=== PATIENT | female | born 1970 | race Caucasian/White ===

== ENCOUNTER 2016-09-22 04:40 | Emergency (ER) | payer SELFPAY ==
[~2016-09-22] VITALS: Ht 154.9 cm; Wt 61.0 kg
[~2016-09-22 04:40] MED LIST: AMBIEN5 MG PO; CIPROFLOXACN500 MG PO; GABAPENTIN300 MG PO; GABAPENTIN600 MG PO; THORAZINE100 M1 PO; TRAZODONE50 MG PO; VISTARIL 50MG C50 M1 PO
[2016-09-22] MEDS ORDERED: ALPRAZOLAM0.25 MG PO (04:59)
[2016-09-22 05:41] LABS: HEMATOCRIT 35.3 % (37.0-47.0); HEMOGLOBIN 11.3 g/dl (12.0-16.0); IMMATURE GRANULOCYTES 0.2 % (0.0-1.0); MEAN CELL VOLUME 83.3 fL CALC (80.0-100.0); MEAN CORPUSCULAR HGB 26.7 pG CALC (26.0-32.0); NEUT# 5.82 thou/uL (2.00-7.15); RED BLOOD COUNT 4.24 mill/uL (4.20-5.60); RED CELL DISTRI WIDTH 14.5 % (11.5-15.5)
[2016-09-22 05:48] LABS: URINE BILIRUBIN - DIPSTICK NEGATIVE (NEGATIVE); URINE BLOOD DIPSTICK NEGATIVE (NEGATIVE); URINE CLARITY CLEAR; URINE COLOR YELLOW; URINE GLUCOSE - DIPSTICK NEGATIVE (NEGATIVE); URINE KETONE NEGATIVE (NEGATIVE); URINE LEUK ESTERASE TRACE (NEGATIVE); URINE NITRITE - DIPSTICK NEGATIVE (Negative); URINE PROTEIN - DIPSTICK NEGATIVE (NEG-TRACE); URINE UROBILINOGEN - DIPSTICK 0.2 E.U./dL (0.2)
[2016-09-22 05:51] LABS: BARBITURATES NEGATIVE (NEGATIVE); COCAINE POSITIVE (NEGATIVE); METHADONE NEGATIVE (NEGATIVE); OXCYCODONE NEGATIVE (NEGATIVE); TETRAHYDROCANNABIONOL NEGATIVE (NEGATIVE); TRICYLIC ANTIDEPRESSANTS NEGATIVE (NEGATIVE)
[2016-09-22 06:08] LABS: ALBUMIN 4.6 g/dL (3.2-5.0); ALKALINE PHOSPHATASE 59 u/l (38-126); ANION GAP 16 (6-22 (CALC)); BILIRUBIN, TOTAL 0.6 mg/dL (0.0-1.4); BUN 10 mg/dL (7-17); BUN/CREATININE RATIO 14 (12-20 (CALC)); CALCIUM 9.9 mg/dL (8.4-10.2); CARBON DIOXIDE 25 mmol/l (22-30); CHLORIDE 101 mmol/l (95-108); CREATININE 0.7 mg/dL (0.5-1.0); GFR > 60 ML/MIN (>=60 (CALC)); GFR FOR AFR.AMER. > 60 ML/MIN (>=60 (CALC)); GLUCOSE 96 mg/dL (65-105); POTASSIUM 3.5 mmol/l (3.5-5.1); SGOT/AST 20 u/l (14-36); SGPT/ALT 38 u/l (9-52); SODIUM 139 mmol/l (137-146); TOTAL PROTEIN 7.6 g/dL (6.3-8.2)
[2016-09-22 06:13] LABS: ETHYL ALCOHOL 0 mg/dl (0-30)
[2016-09-22 07:44] VITALS: BP 144/94
== END 2016-09-22 07:44 | disposition short-term general hospital (02) | DRG 885 ==
LOC: ED 04:40
DX: F31.9 Bipolar disorder, unspecified (principal); R45.851 Suicidal ideations

== ENCOUNTER 2021-01-01 18:42 | Emergency (ER) | payer SELFPAY ==
[~2021-01-01] VITALS: Ht 154.9 cm; Wt 58.0 kg
[~2021-01-01 18:42] MED LIST changes: +ALPRAZOLAM0.25 MG PO
[2021-01-01] MEDS ORDERED: TRAZODONE50 MG PO (18:58)
[2021-01-01] MEDS ORDERED: hydroxyzine (18:59)
[2021-01-01 19:32] LABS: HEMATOCRIT 30.9 % (37.0-47.0); HEMOGLOBIN 9.3 g/dl (12.0-16.0); IMMATURE GRANULOCYTES 0.2 % (0.0-5.0); MEAN CELL VOLUME 80.5 fL CALC (80.0-100.0); MEAN CORPUSCULAR HGB 24.2 pG CALC (26.0-32.0); MEAN CORPUSCULAR HGB CONC 30.1 g/dL CAL (32.0-36.0); NEUT# 6.98 thou/uL (2.00-7.15); RED BLOOD COUNT 3.84 mill/uL (4.20-5.60); RED CELL DISTRI WIDTH 16.8 % (11.5-15.5)
[2021-01-01 19:38] LABS: ALKALINE PHOSPHATASE 44 u/l (38-126); ANION GAP 8 (6-22 (CALC)); BUN 18 mg/dL (7-17); BUN/CREATININE RATIO 26 (12-20 (CALC)); CARBON DIOXIDE 26 mmol/l (22-30); CHLORIDE 104 mmol/l (95-108); CPK 77 u/l (30-165); CREATININE 0.7 mg/dL (0.5-1.0); GFR > 60 ML/MIN (>=60 (CALC)); GFR FOR AFR.AMER. > 60 ML/MIN (>=60 (CALC)); MAGNESIUM 1.8 mg/dL (1.6-2.3); POTASSIUM 3.6 mmol/l (3.5-5.1); SGOT/AST 19 u/l (14-36); SODIUM 135 mmol/l (137-146); TOTAL PROTEIN 6.4 g/dL (6.3-8.2)
[2021-01-01 19:47] LABS: URINE BILIRUBIN - DIPSTICK NEGATIVE (NEGATIVE); URINE BLOOD DIPSTICK TRACE-INTACT (NEGATIVE); URINE COLOR YELLOW; URINE GLUCOSE - DIPSTICK NEGATIVE (NEGATIVE); URINE KETONE NEGATIVE (NEGATIVE); URINE LEUK ESTERASE NEGATIVE (NEGATIVE); URINE PROTEIN - DIPSTICK NEGATIVE (NEG-TRACE); URINE SPECIFIC GRAVITY >=1.030; URINE UROBILINOGEN - DIPSTICK 0.2 E.U./dL (0.2)
[2021-01-01 19:48] LABS: URINE NITRITE - DIPSTICK NEGATIVE (Negative)
[2021-01-01 19:51] LABS: ALBUMIN 3.4 g/dL (3.2-5.0); BILIRUBIN, TOTAL 0.2 mg/dL (0.0-1.4)
[2021-01-01 20:08] LABS: TSH, 3RD GENERATION 2.57 uIU/mL (0.47 - 4.68)
[2021-01-01] MEDS ORDERED: AMLODIPINE BESYL5 MG PO (20:27)
[2021-01-01 20:30] VITALS: BP 144/65
[2021-01-02] MEDS ORDERED: AMLODIPINE BESYL5 MG PO (14:40)
== END 2021-01-01 20:40 | disposition home or self-care (01) | DRG 880 ==
LOC: ED 18:42
PROVIDERS: Family Medicine
DX: F41.9 Anxiety disorder, unspecified (principal); I10 Essential (primary) hypertension

== ENCOUNTER 2022-09-16 15:45 | Emergency (ER) | payer SELFPAY ==
[~2022-09-16] VITALS: Ht 154.9 cm; Wt 62.0 kg
[~2022-09-16 15:45] MED LIST changes: +AMLODIPINE BESYL5 MG PO; +hydroxyzine
[2022-09-16] MEDS ORDERED: NAPROXEN500 MG PO (15:58)
[2022-09-16] MEDS ORDERED: CLINDAMYCIN HY150 MG PO (15:58)
[2022-09-16 16:17] VITALS: BP 136/88
== END 2022-09-16 16:20 | disposition home or self-care (01) | DRG 159 ==
LOC: ED 15:45
DX: K04.7 Periapical abscess without sinus (principal); K02.9 Dental caries, unspecified; S02.5XXA Fracture of tooth (traumatic), initial encounter for closed fracture; F41.9 Anxiety disorder, unspecified; X58.XXXA Exposure to other specified factors, initial encounter; Z88.0 Allergy status to penicillin